=== PATIENT | female | born 1940 | race Caucasian/White ===

== ENCOUNTER 2023-09-14 13:07 | Inpatient (IN) | payer OTHER ==
[2023-09-14 13:30] VITALS: BMI 38.9
[2023-09-14 14:38] LABS: EOS % 3.1 % (0-4.5); HEMATOCRIT 29.4 % (32.4-45.2); HEMOGLOBIN 9.5 GM/dL (10.7-15.3); LYMPH % 13.4 % (8-40); MCH 24.1 pg (25.7-33.7); MCHC 32.3 g/dl (32.0-36.0); MEAN CELL VOLUME 74.6 fl (80-96); MEAN PLT VOLUME 7.3 fl (7.5-11.1); MONO % 6.4 % (3.8-10.2); NEUT % 76.1 % (42.8-82.8); PLATELET COUNT 259 10^3/uL (134-434); RBC 3.95 M/mm3 (3.60-5.2); RDW 17.3 % (11.6-15.6); WHITE BLOOD COUNT 10.3 K/mm3 (4.0-10.0)
[2023-09-14 14:47] LABS: INR 0.96 (0.83-1.09); PROTHROMBIN TIME (PATIENT) 10.9 SEC (9.7-13.0)
[2023-09-14 14:49] LABS: ACTIVATED PTT 32.9 SECONDS (25.2-36.5)
[2023-09-14] MEDS ORDERED: FUROSEMIDE 40 MG/4 ML INJECTABLE VIAL ONE (14:56)
[2023-09-14 15:03] LABS: POTASSIUM 4.4 mmol/L (3.5-5.1)
[2023-09-14 15:05] LABS: CALCIUM 8.5 mg/dL (8.5-10.1)
[2023-09-14 15:06] LABS: BLOOD UREA NITROGEN 19.5 mg/dL (7-18)
[2023-09-14 15:09] LABS: CREATININE 1.1 mg/dL (0.55-1.3)
[2023-09-14] MEDS: FUROSEMIDE 40 MG/4 ML INJECTABLE VIAL IVPUSH ONE (15:09)
[2023-09-14 15:10] LABS: TOT PROT 6.3 g/dl (6.4-8.2)
[2023-09-14 15:11] LABS: BILIRUBIN,TOTAL 0.6 mg/dL (0.2-1)
[2023-09-14 15:14] LABS: N-TERMINAL BNP 1619.6 pg/ml (5-450)
[2023-09-14 15:23] LABS: EPI CELLS 7 /uL (0-25.1); HYALINE CASTS 0 /uL (0-3.1); PH,URINE 5.5 (5.0-8.0); URINE APPEARANCE CLOUDY; URINE BACTERIA 7373 /uL (0-1359); URINE BILIRUBIN NEGATIVE (NEGATIVE); URINE COLOR YELLOW; URINE GLUCOSE (UA) NEGATIVE (NEGATIVE); URINE KETONE NEGATIVE (NEGATIVE); URINE LEUK ESTERASE 3+ (NEGATIVE); URINE NITRITE POSITIVE (NEGATIVE); URINE PROTEIN 1+ (NEGATIVE); URINE RBC 28 /uL (0-23.9); URINE UROBILINOGEN 0.2 mg/dL (0.2-1.0); URINE WBC 2275 /uL (0-25.8)
[2023-09-14] MEDS ORDERED: CEFTRIAXONE 1 GM/50 ML BAG ONE (16:15)
[2023-09-14] MEDS: CEFTRIAXONE 1,000 MG in DEXTROSE 5%-WATER - 50 ML IVPB ONE (16:24)
[2023-09-14] MEDS: SACUBITRIL/VALSARTAN 24 MG-26 MG TABLET PO SCH (22:26)
[2023-09-14] MEDS: HEPARIN NA (PORCINE) 5,000 UNITS/ML 1ML VIAL SQ SCH (22:26)
[2023-09-14] MEDS: ATORVASTATIN CA 20 MG TABLET (FP) PO SCH (22:26)
[2023-09-15 07:13] LABS: HEMATOCRIT 30.5 % (32.4-45.2); MCH 24.5 pg (25.7-33.7); MCHC 32.8 g/dl (32.0-36.0); MEAN CELL VOLUME 74.5 fl (80-96); MEAN PLT VOLUME 7.5 fl (7.5-11.1); PLATELET COUNT 273 10^3/uL (134-434); RDW 16.9 % (11.6-15.6); WHITE BLOOD COUNT 10.2 K/mm3 (4.0-10.0)
[2023-09-15 07:33] LABS: POTASSIUM 3.9 mmol/L (3.5-5.1)
[2023-09-15 07:35] LABS: CALCIUM 9.2 mg/dL (8.5-10.1)
[2023-09-15 07:37] LABS: BLOOD UREA NITROGEN 16.2 mg/dL (7-18)
[2023-09-15 07:40] LABS: TOT PROT 6.2 g/dl (6.4-8.2)
[2023-09-15 07:42] LABS: BILIRUBIN,TOTAL 0.7 mg/dL (0.2-1)
[2023-09-15] MEDS: CEFTRIAXONE 1 GM in DEXTROSE 5%-WATER - 50 ML IVPB SCH (10:29)
[2023-09-15] MEDS: FUROSEMIDE 40 MG/4 ML INJECTABLE VIAL IVPUSH SCH (10:29)
[2023-09-15] MEDS: ASPIRIN COATED 81 MG TABLET.EC PO SCH (10:29)
[2023-09-15] MEDS: IRON SUCROSE INJECTION 200 MG in SODIUM CHLORIDE 100 ML IVPB ONE (17:54)
[2023-09-15] MEDS: ACETAMINOPHEN 325 MG TABLET (FP) PO PRN (20:22)
[2023-09-16 08:14] LABS: BASO % 1.1 % (0-2.0); EOS % 2.7 % (0-4.5); HEMATOCRIT 32.5 % (32.4-45.2); HEMOGLOBIN 10.4 GM/dL (10.7-15.3); LYMPH % 17.7 % (8-40); MCH 23.9 pg (25.7-33.7); MCHC 32.1 g/dl (32.0-36.0); MEAN CELL VOLUME 74.5 fl (80-96); MEAN PLT VOLUME 7.7 fl (7.5-11.1); MONO % 9.5 % (3.8-10.2); PLATELET COUNT 277 10^3/uL (134-434); RBC 4.37 M/mm3 (3.60-5.2); RDW 17.2 % (11.6-15.6); WHITE BLOOD COUNT 9.5 K/mm3 (4.0-10.0)
[2023-09-16 08:34] LABS: POTASSIUM 3.6 mmol/L (3.5-5.1)
[2023-09-16 08:38] LABS: CALCIUM 9.1 mg/dL (8.5-10.1)
[2023-09-16 08:39] LABS: ALBUMIN 3.2 g/dl (3.4-5.0); BLOOD UREA NITROGEN 14.8 mg/dL (7-18)
[2023-09-16 08:43] LABS: BILIRUBIN,TOTAL 0.8 mg/dL (0.2-1)
[2023-09-16 08:44] LABS: TOT PROT 6.4 g/dl (6.4-8.2)
[2023-09-16] MEDS: CARVEDILOL 25 MG TABLET (FP) PO SCH (09:48)
[2023-09-16] MEDS: METHIMAZOLE 5 MG TABLET PO SCH (09:48)
[2023-09-16] MEDS: PANTOPRAZOLE 40 MG TABLET PO SCH (09:48)
[2023-09-16] MEDS: POTASSIUM CHLORIDE TABS 20 MEQ TABLET.ER (FP) PO SCH (09:48)
[2023-09-16] MEDS: IRON SUCROSE INJECTION 200 MG in SODIUM CHLORIDE 100 ML IVPB ONE (09:49)
[2023-09-16] MEDS ORDERED: ASPIRIN 81 MG CHEWABLE TABLETS PO SCH (10:00)
[2023-09-16] MEDS: INSULIN (NOVOLOG) ASPART 100 UNITS/ML 10ML VIAL SQ SCH (11:57)
[2023-09-16] MEDS: INSULIN ASPART SLIDING SCALE (NOVOLOG) 1 VIAL SQ SCH (11:57)
[2023-09-16] MEDS: GABAPENTIN 100 MG CAPSULE PO SCH (14:13)
[2023-09-16] MEDS: guaiFENesin/CODEINE 5 ML UNIT-DOSE CUPS PO PRN (17:36)
[2023-09-17] MEDS: CEPHALEXIN MONOHYDRATE 500 MG CAPSULE (UD) PO SCH (10:16)
[2023-09-18 07:57] LABS: POTASSIUM 3.9 mmol/L (3.5-5.1)
[2023-09-18 08:05] LABS: CALCIUM 8.6 mg/dL (8.5-10.1)
[2023-09-18 08:06] LABS: ALBUMIN 2.9 g/dl (3.4-5.0)
[2023-09-18 08:09] LABS: CREATININE 1.2 mg/dL (0.55-1.3)
[2023-09-18 08:10] LABS: BILIRUBIN,TOTAL 0.7 mg/dL (0.2-1); TOT PROT 5.9 g/dl (6.4-8.2)
[2023-09-18 08:14] LABS: EOS % 3.6 % (0-4.5); HEMATOCRIT 29.3 % (32.4-45.2); HEMOGLOBIN 9.6 GM/dL (10.7-15.3); LYMPH % 19.3 % (8-40); MCH 24.5 pg (25.7-33.7); MCHC 32.8 g/dl (32.0-36.0); MEAN CELL VOLUME 74.6 fl (80-96); MONO % 9.2 % (3.8-10.2); NEUT % 66.9 % (42.8-82.8); PLATELET COUNT 241 10^3/uL (134-434); RBC 3.93 M/mm3 (3.60-5.2); RDW 17.7 % (11.6-15.6); WHITE BLOOD COUNT 9.4 K/mm3 (4.0-10.0)
[2023-09-19 06:02] VITALS: RESP 18
[2023-09-19] MEDS: INSULIN (LEVEMIR) 100 UNITS/ML UNITS SQ SCH (08:19)
[2023-09-19 09:00] VITALS: BP 159/64; PULSE 51; TEMP 97.7
[2023-09-19] MEDS: FUROSEMIDE 40 MG/4 ML INJECTABLE VIAL IVPUSH SCH (09:19)
[2023-09-19] MEDS ORDERED: FLUTICASONE/UMECLIDIN/VILANTER(200-62.5-25 TRELEGY ELLIPTA) INAHLER IH SCH (10:00)
[2023-09-19] MEDS ORDERED: CARVEDILOL 12.5 MG TABLET (FP) PO SCH (11:18)
== END 2023-09-19 13:46 | disposition home or self-care (01) | DRG 291 ==
LOC: JER 13:07 → JERBED 15:56 → J4W 18:33
PROVIDERS: ADMIT Family Medicine; ATTEND Family Medicine
DX: I13.0 Hypertensive heart and chronic kidney disease with heart failure and stage 1 through stage 4 chronic kidney disease, or unspecified chronic kidney disease (principal); I50.33 Acute on chronic diastolic (congestive) heart failure; N39.0 Urinary tract infection, site not specified; E78.5 Hyperlipidemia, unspecified; E03.9 Hypothyroidism, unspecified; E66.9 Obesity, unspecified; Z68.39 Body mass index [BMI] 39.0-39.9, adult; B96.20 Unspecified Escherichia coli [E. coli] as the cause of diseases classified elsewhere; N18.9 Chronic kidney disease, unspecified; E11.22 Type 2 diabetes mellitus with diabetic chronic kidney disease; J44.9 Chronic obstructive pulmonary disease, unspecified; E05.90 Thyrotoxicosis, unspecified without thyrotoxic crisis or storm; D64.9 Anemia, unspecified
CPT/HCPCS: 0241U-QW; 36415; 71045-TC-FY; 71250-TC; 80053; 80061; 81003; 82728; 82962; 83036; 83540; 83550; 83735; 83880; 84439; 84443; 84484; 85025; 85027; 85610; 85730; 87086; 87186; 93005; 93010; 93306-TC; 97116-GP; 97162-GP; 99285-25; J1644; J1756